=== PATIENT | female | born 1995 ===

== ENCOUNTER 2021-09-01 06:03 | Emergency (ER) | payer BC, OTHER ==
[~2021-09-01] VITALS: Ht 170.2 cm; Wt 145.1 kg
[2021-09-01 09:12] LABS: Basophils # (auto) 0 10 ^3/uL (0-0.2); Basophils % (auto) 0.3 % (0.0-2.0); Eosinophils # (auto) 0.1 10 ^3/uL (0-0.8); Eosinophils % (auto) 0.4 % (0.0-7.0); Hematocrit 36.2 % (36.0-46.0); Hemoglobin 12.2 g/dL (12.2-16.2); Lymphocytes # (auto) 1.9 10 ^3/uL (0.4-5.4); Mean Corpuscular Hgb Conc. 33.6 g/dL (32.0-36.0); Mean Corpuscular Volume 77.3 fL (80.0-100.0); Monocytes # (auto) 0.6 10 ^3/uL (0-1.3); Monocytes % (auto) 4.5 % (0.0-12.0); Neutrophils # (auto) 10.8 10 ^3/uL (1.6-8.6); Neutrophils % (auto) 80.8 % (37.0-80.0); Nucleated Red Blood Cells % 0.1 %; Red Blood Cells 4.68 10^6/uL (4.0-5.20); Red Cell Distribution Width 18.3 % (11.8-14.3); White Blood Cell 13.4 10^3/uL (4.4-10.8)
[2021-09-01 09:19] LABS: Calcium 8.7 mg/dL (8.5-10.1); Potassium 3.6 mmol/L (3.5-5.1)
[2021-09-01 09:25] LABS: Albumin 2.8 g/dL (3.4-5.0); BUN/Creatinine Ratio 10.6; Bilirubin, Total 0.3 mg/dL (0.2-1.0); Total Protein 7.5 g/dL (6.4-8.2)
[2021-09-01 13:51] LABS: Urine Blood 3+ /uL (Negative); Urine Specific Gravity 1.022 (1.001-1.035)
[2021-09-01] MEDS ORDERED: NITR-87 PO (15:34)
[2021-09-01 16:30] VITALS: BP 138/79
== END 2021-09-01 16:40 | disposition home or self-care (01) ==
LOC: ER 06:03
DX: O23.42 Unspecified infection of urinary tract in pregnancy, second trimester (principal); Z3A.16 16 weeks gestation of pregnancy
CPT/HCPCS: 36415; 76805; 80053; 81003; 81025; 84702; 85025